=== PATIENT | female | born 1995 | race Two or more races ===

== ENCOUNTER 2022-03-22 16:18 | Emergency (ER) | payer OTHER ==
[~2022-03-22] VITALS: Ht 167.6 cm; Wt 68.0 kg
== END 2022-03-22 19:41 | disposition home or self-care (01) ==
LOC: ER 16:18
DX: J10.1 Influenza due to other identified influenza virus with other respiratory manifestations (principal); Z20.822 Contact with and (suspected) exposure to COVID-19